=== PATIENT | male | born 1950 | race Caucasian/White ===

== ENCOUNTER 2017-01-27 16:40 | Emergency (ER) | payer BC ==
[~2017-01-27] VITALS: Ht 162.6 cm; Wt 67.0 kg
[2017-01-27 16:46] VITALS: BP 165/88; PULSE 79; RESP 16; TEMP 97.9; O2SAT 94
[2017-01-27] MEDS ORDERED: [UNRECOGNIZED DRUG - OTHER] (16:55)
[2017-01-27] MEDS ORDERED: [UNRECOGNIZED DRUG - OTHER] (16:55)
[2017-01-27] MEDS ORDERED: PRED20 PO (17:26)
[2017-01-27] MEDS ORDERED: CLIN300C5 PO (17:26)
--- NOTE | 2017-01-27 17:27 | PD ---
HPI Chief Complaint: Allergic/Adverse Reaction Time Seen by Provider: 17:06 Travel History International Travel<30 days: No Contact w/Intl Traveler<30days: No Traveled to known affect area: No History of Present Illness HPI 66 old male here for bilateral hand and forearm pain after possible insect bite. He reports he noticed pain, itching, redness to the dorsal aspect of both hands yesterday evening. He attributed this to a possible insect bite. Today the redness began to extend medially up the mid forearms. He reports that the area is warm, painful and pruritic. He denies fever or chills. He denies history of IV drug abuse. Symptom severity is moderate. Unrelieved by one dose of Benadryl. PFSH Past Medical History Medical History: Denies Significant Hx High Cholesterol: Yes Hypertension: Yes Myocardial Infarction: Yes Past Surgical History Coronary Stent: Yes (X'S 2) Social History Alcohol Use: No Tobacco Use: No Allergies-Medications (Allergen,Severity, Reaction): Coded Allergies: No Known Allergies (Unverified , 01/27/17) Reported Meds & Prescriptions Reported Meds & Active Scripts Active Reported [Circulation Med] [Lipid Reduction] Review of Systems Except as stated in HPI: all other systems reviewed are Neg General / Constitutional: No: Fever Physical Exam Narrative GENERAL: Well-nourished, well-developed patient. SKIN: Focused skin assessment warm/dry. Notable erythema, warmth, slight induration to the dorsal aspect of both hands extending up to the mid forearm on the right upper extremity. No lymphangitis. HEAD: Normocephalic. EYES: No scleral icterus. No injection or drainage. NECK: Supple, trachea midline. No JVD or lymphadenopathy. CARDIOVASCULAR: Regular rate and rhythm without murmurs, gallops, or rubs. RESPIRATORY: Breath sounds equal bilaterally. No accessory muscle use. MUSCULOSKELETAL: No cyanosis, or edema. Data Data Last Documented VS Vital Signs Date Time Temp Pulse Resp B/P (MAP) Pulse Ox O2 Delivery O2 Flow Rate FiO2 01/27/17 16:46 97.9 79 16 165/88 (113) 94 MDM Medical Decision Making Medical Screen Exam Complete: Yes Emergency Medical Condition: Yes Differential Diagnosis Insect bite, cellulitis, abscess Narrative Course 66 old male here with possible infected insect bites to both upper extremity. Symptom onset was history. On exam he has notable erythema, mild swelling, slight induration and warmth to the dorsal aspect of both hands extending up to the midforearm. No open wounds or areas of fluctuance. The joint involvement. This appears to be either inflammation is localized allergic reaction to insect venom or cellulitis. Diagnosis Primary Impression: Insect bites Qualified Codes: W57.XXXA - Bitten or stung by nonvenomous insect and other nonvenomous arthropods, initial encounter Referrals: [facility] Additional Instructions: Take [id number] Benadryl 25 mg every 6 hours as needed for itching. Follow-up with her doctor for recheck of the areas. Return to emergency department developed new or worsening symptoms. Scripts Prednisone (Prednisone) 20 Mg Tab 40 MG PO DAILY, #8 TAB 0 Refills Take 40 mg (2 tablets) daily for 5 days Prov: Monica Solo 01/27/17 Clindamycin (Clindamycin) 300 Mg Cap 300 MG PO Q6H for Infection for 7 Days, #28 CAP 0 Refills Prov: Monica Solo 01/27/17 Disposition: 01 DISCHARGE HOME Condition: Stable Monica Solo Jan 27, 2017 17:27
== END 2017-01-27 18:11 | disposition home or self-care (01) ==
LOC: PHEFT 16:40
DX: S50.861A Insect bite (nonvenomous) of right forearm, initial encounter (principal); S50.862A Insect bite (nonvenomous) of left forearm, initial encounter; W57.XXXA Bitten or stung by nonvenomous insect and other nonvenomous arthropods, initial encounter
CPT/HCPCS: 99284